=== PATIENT | female | born 2000 | race Caucasian/White ===

== ENCOUNTER 2018-05-07 12:30 | Emergency (ER) | payer OTHER ==
[2018-05-07 13:28] VITALS: BP 143/74
--- NOTE | 2018-05-07 13:54 | UC ---
Complaint Female HPI - HPI Summary HPI Summary: Woke up with painful urination, urgency and lower abdominal tenderness. gets frequent UTIs - History Of Current Complaint Chief Complaint: UCGU Stated Complaint: URINARY Time Seen by Provider: 05/07/18 13:22 Hx Obtained From: Patient Hx Last Menstrual Period: 04/03/18 ?: No Onset/Duration: Sudden Onset, Lasting Hours Timing: Constant Severity Initially: Moderate Severity Currently: Moderate Pain Intensity: 8 Associated Signs And Symptoms: Positive: Back Pain - Allergies/Home Medications Allergies/Adverse Reactions: Allergies Allergy/AdvReac Type Severity Reaction Status Date / Time amoxicillin Allergy Rash Verified 05/07/18 13:21 Home Medications: Home Medications Amitriptyline TAB* [Elavil TAB*] 10 mg PO BEDTIME 05/07/18 [History Confirmed ] Naproxen [Naproxen 500 mg tab] 500 mg PO BID PRN 05/07/18 [History Confirmed 10/19] Pantoprazole TAB (NF) [Protonix TAB (NF)] 40 mg PO DAILY 05/07/18 [History Confirmed 05/07/18] predniSONE TAB* [Deltasone 10 MG TAB*] 20 mg PO DAILY 05/07/18 [History Confirmed 05/07/18] PMH/Surg Hx/FS Hx/Imm Hx Previously Healthy: Yes - Surgical History Surgical History: Yes Surgery Procedure, Year, and Place: wisdom teeth. - Family History Known Family History: Positive: Hypertension - Social History Alcohol Use: Occasionally Substance Use Type: None Smoking Status (MU): Never Smoked Tobacco Review of Systems Constitutional: Negative Skin: Negative Eyes: Negative ENT: Negative Respiratory: Negative Cardiovascular: Negative Gastrointestinal: Negative Genitourinary: Dysuria, Frequency, Urgency Motor: Negative Neurovascular: Negative Musculoskeletal: Negative Neurological: Negative Psychological: Negative Is Patient Immunocompromised?: No All Other Systems Reviewed And Are Negative: Yes Physical Exam Triage Information Reviewed: Yes Appearance: Well-Appearing, Well-Nourished, Pain Distress Vital Signs: Initial Vital Signs Temp 97.7 F 05/07/18 13:24 Pulse 93 05/07/18 13:24 Resp 14 05/07/18 13:24 BP 143/74 05/07/18 13:24 Pulse Ox 98 05/07/18 13:24 Vital Signs Reviewed: Yes Eye Exam: Normal ENT Exam: Normal Dental Exam: Normal Neck exam: Normal Respiratory Exam: Normal Cardiovascular Exam: Normal Abdomen Description: Positive: Nontender, No Organomegaly, Soft, CVA Tenderness (R) - neg, CVA Tenderness (L) - neg Musculoskeletal Exam: Normal Neurological Exam: Normal Psychological Exam: Normal Skin Exam: Normal Complaint Female Dx - Course Course Of Treatment: hx obtained, exam performed ,meds reviewed, treated for positive UA - Differential Dx/Diagnosis Differential Diagnosis/HQI/PQRI: Urinary Tract Infection Provider Diagnoses: UTI Discharge - Sign-Out/Discharge Documenting (check all that apply): Patient Departure All imaging exams completed and their final reports reviewed: No Studies - Discharge Plan Condition: Stable Disposition: HOME Prescriptions: Nitrofurantoin Monohyd/M-Cryst [Macrobid 100 mg Capsule] 100 mg PO BID #14 cap Patient Education Materials: Urinary Tract Infection in Women (ED) Referrals: Sonja Romero PA [Primary Care Provider] - Additional Instructions: 1. Take the medication as prescribed. 2. Increase fluid intake and start the cranberry pills 3. FOllow up is symptoms worsen - Billing Disposition and Condition Condition: STABLE Disposition: Home
== END 2018-05-07 14:10 | disposition home or self-care (01) ==
LOC: UCCORT 12:30
DX: N39.0 Urinary tract infection, site not specified (principal); Z88.0 Allergy status to penicillin
CPT/HCPCS: 81003; 87086; 99202; G0463